=== PATIENT | female | born 1990 | race Caucasian/White ===

== ENCOUNTER 2018-06-23 12:50 | Emergency (ER) | payer OTHER ==
[~2018-06-23] VITALS: Ht 157.5 cm; Wt 70.0 kg
[2018-06-23 13:28] VITALS: BP 110/70
--- NOTE | 2018-06-23 13:55 | NUR ---
PT AMBULATED TO ER BED 11
--- NOTE | 2018-06-23 14:03 | NUR ---
PT. ARRIVED TO THE ED DUE TO C/O RT EAR PAIN SINCE FRIDAY. DENIES DIZZINESS, NVD OR INJURY. DENIES ANY DISCHARGE FROM EAR BUT C/O OF NASAL CONGESTION WELL. 02/11 SHARP PAIN TO RT EAR THAT IS NON RADIATING. ER MD MADE AWARE. SAFETY PRECAUTIONS IMPLEMENTED. WILL CONTINUE TO MONITOR.
[2018-06-23 14:40] VITALS: BP 118/75
--- NOTE | 2018-06-23 14:40 | NUR ---
Patient discharged with v/s stable. Written and verbal after care instructions given and explained. Patient alert, oriented and verbalized understanding of instructions. Ambulatory with steady gait. All questions addressed prior to discharge. ID band removed. Patient advised to follow up with PMD. Rx of PROMETHAZINE DM, AUGMENTIN AND FLONASE given. Patient educated on indication of medication including possible reaction and side effects. Opportunity to ask questions provided and answered.
== END 2018-06-23 14:40 | disposition home or self-care (01) ==
LOC: MED 12:50
DX: J06.9 Acute upper respiratory infection, unspecified (principal); H92.01 Otalgia, right ear; Z90.710 Acquired absence of both cervix and uterus; Z88.5 Allergy status to narcotic agent
CPT/HCPCS: 99283

== ENCOUNTER 2019-01-02 09:41 | Emergency (ER) | payer OTHER ==
[~2019-01-02] VITALS: Ht 157.5 cm; Wt 70.9 kg
--- NOTE | 2019-01-02 09:46 | NUR ---
PT TAKEN TO BED 6.
[2019-01-02 09:50] VITALS: BP 115/72
--- NOTE | 2019-01-02 09:50 | NUR ---
PT BIB SELF C/O LLQ PAIN X 1 WEEK. PT REPORTS SHARP NON RADIATING LLQ PAIN AT 8, TX WITH TYLENOL W/OUT RELIEF. LAST BM 01/01/19, ABD FLAT, TENDER TO TOUCH. + NAUSEA. - FEVER, DIARRHEA, OR DYSURIA. VSS. ER MD TO SEE PT. MEDHX:HYSTERECTOMY RX:TYLENOL
--- NOTE | 2019-01-02 10:06 | NUR ---
PT STATES SHE IS UNABLE TO PROVIDE URINE AT THIS TIME
--- NOTE | 2019-01-02 10:22 | NUR ---
Dr. Butcher evaluating patient at bedside.
[2019-01-02] MEDS ORDERED: NACL 0.9% 1,000 ML IV SCH (10:47)
[2019-01-02] MEDS ORDERED: KETOROLAC 30 MG/ML VIAL IVP ONE (10:50)
[2019-01-02] MEDS ORDERED: ONDANSETRON 4 MG/2 ML VIAL IVP ONE (10:50)
[2019-01-02 11:54] LABS: BASOPHILS % (AUTO) 0.2 % (0.0-2.0); EOSINOPHILS % (AUTO) 0.5 % (0.0-4.0); HEMATOCRIT 41.6 % (36-48); HEMOGLOBIN 14.1 g/dL (12.0-16.0); LYMPHOCYTES # (AUTO) 1.8 K/uL (2.5-16.5); LYMPHOCYTES % (AUTO) 28.3 % (20.5-51.1); MEAN CORPUSCULAR HEMOGLOBIN 30 pg (27-31); MEAN CORPUSCULAR HGB CONC 34 g/dL (33-37); MEAN CORPUSCULAR VOLUME 88.8 fL (80-94); MONOCYTES # (AUTO) 0.5 K/uL (0.8-1.0); MONOCYTES % (AUTO) 7.9 % (1.7-9.3); NEUTROPHILS % (AUTO) 63.1 % (42.2-75.2); PLATELET COUNT (AUTO) 248 K/uL (140-450); RED BLOOD CELL COUNT(AUTO) 4.68 MIL/uL (4.20-5.40); RED CELL DISTRIBUTION WIDTH 12.4 % (11.6-13.7); WHITE BLOOD COUNT (AUTO) 6.4 K/uL (4.8-10.8)
--- NOTE | 2019-01-02 11:57 | NUR ---
US tech at bedside.
[2019-01-02 12:17] LABS: ALBUMIN 4.2 g/dL (3.4-5.0); ANION GAP 12.6 (8-16); CARBON DIOXIDE 29.3 mmol/L (21-32); CREATININE 0.7 mg/dL (0.6-1.3); POTASSIUM 3.9 mmol/L (3.5-5.1); TOTAL BILIRUBIN 0.5 mg/dL (0.0-1.0)
[2019-01-02 12:23] LABS: BILIRUBIN,URINE NEGATIVE (NEGATIVE); BLOOD, URINE NEGATIVE (NEGATIVE); COLOR,URINE YELLOW (YELLOW); LEUKOCYTE ESTERASE ,URINE TRACE (NEGATIVE); NITRITE, URINE NEGATIVE (NEGATIVE); UGLUCOSE NEGATIVE (NEGATIVE)
[2019-01-02 12:32] LABS: APPEARANCE,URINE SLIGHTLY HAZY (CLEAR); RBC,URINE NONE SEEN /HPF (0-5); WBC,URINE 0-5 /HPF (0-5)
--- NOTE | 2019-01-02 12:38 | NUR ---
PT SITTING IN BED. PT DENIES NAUSEA AT THIS TIME, REPORTS SHARP PAIN AT 4/10 IN LLQ THAT INCREASES WITH PALPATION. PT STATES PAIN IS TOLERABLE AT THIS TIME.
--- NOTE | 2019-01-02 14:32 | NUR ---
Dr. Butcher evaluating patient at bedside.
[2019-01-02 15:11] VITALS: BP 96/58
== END 2019-01-02 15:11 | disposition home or self-care (01) ==
LOC: MED 09:41
DX: N39.0 Urinary tract infection, site not specified (principal); E07.9 Disorder of thyroid, unspecified; Z90.710 Acquired absence of both cervix and uterus; Z88.5 Allergy status to narcotic agent
CPT/HCPCS: 36415; 76856; 80053; 81001; 83690; 85025; 87086; 96374; 96375; 99284; J1885; J2405; J7030; Q0092

== ENCOUNTER 2019-07-18 08:11 | Emergency (ER) | payer OTHER ==
[~2019-07-18] VITALS: Ht 157.5 cm; Wt 73.5 kg
[2019-07-18 08:17] VITALS: BP 119/87
--- NOTE | 2019-07-18 08:22 | NUR ---
C/O STABBING R EAR PAIN RADIATING DOWN R SIDE OF NECK 12/12 X3 WEEKS. PT STATES SHE WAS GIVEN PCN 2 WEEKS AGO AND FINISHED IT WITH NO IMPROVEMENT. PT WAS SEEN WED AT PCP AND GIVEN ANOTHER ABX - NAME UNK - FOR 5 DAYS BUT IS STILL HAVING NO PAIN RELIEF. DENIES INJURY TO EAR. BED IN LOW POSITION, SIDE RAIL UP X1.
--- NOTE | 2019-07-18 08:28 | NUR ---
DR. GARAY AT BEDSIDE
[2019-07-18] MEDS ORDERED: KETOROLAC 60 MG/2 ML VIAL IM ONE (08:45)
[2019-07-18 09:41] VITALS: BP 119/87
--- NOTE | 2019-07-18 09:43 | NUR ---
Patient discharged with v/s stable. Written and verbal after care instructions given and explained. Patient alert, oriented and verbalized understanding of instructions. Ambulatory with steady gait. All questions addressed prior to discharge. ID band removed. Patient advised to follow up with PMD. Rx of debrox, motrin given. Patient educated on indication of medication including possible reaction and side effects. Opportunity to ask questions provided and answered.
== END 2019-07-18 09:43 | disposition home or self-care (01) ==
LOC: MED 08:11
DX: H61.21 Impacted cerumen, right ear (principal); E07.9 Disorder of thyroid, unspecified; Z88.5 Allergy status to narcotic agent; Z98.890 Other specified postprocedural states
CPT/HCPCS: 69209; 96372; 99283; J1885

== ENCOUNTER 2019-08-09 06:44 | Emergency (ER) | payer OTHER ==
[~2019-08-09] VITALS: Ht 157.5 cm; Wt 72.6 kg
[2019-08-09 06:45] VITALS: BP 129/89
--- NOTE | 2019-08-09 06:50 | NUR ---
PT TAKEN TO BED 5
[2019-08-09] MEDS ORDERED: KETOROLAC 30 MG/ML VIAL IM ONE (07:35)
--- NOTE | 2019-08-09 07:36 | NUR ---
Dr. Parker is evaluating the patient at bedside.
--- NOTE | 2019-08-09 07:44 | NUR ---
RECEIVED A 29/F FROM TRIAGE FOR C/O BILATERAL EAR ACHING AND HEADACHE. DENIES INJURY/TRAUMA. IN BED FOR MSE.
--- NOTE | 2019-08-09 08:09 | NUR ---
Dr. Parker is re-evaluating the patient at bedside.
--- NOTE | 2019-08-09 09:04 | NUR ---
CT COMPLETE. PENDING RESULTS. PT REPORTS PAIN IS AT A TOLERABLE LEVEL AT THIS TIME. ALL NEEDS ADRESSED.
[2019-08-09 09:18] VITALS: BP 129/89
--- NOTE | 2019-08-09 09:19 | NUR ---
Patient discharged with v/s stable. Written and verbal after care instructions given and explained. Patient alert, oriented and verbalized understanding of instructions. Ambulatory with steady gait. All questions addressed prior to discharge. ID band removed. Patient advised to follow up with PMD. Rx of AMOXICILLIN, TRAMADOL, DEBROX EAR GTT, MIRALAX given. Patient educated on indication of medication including possible reaction and side effects. Opportunity to ask questions provided and answered.
== END 2019-08-09 09:19 | disposition home or self-care (01) ==
LOC: MED 06:44
DX: H66.91 Otitis media, unspecified, right ear (principal); N39.0 Urinary tract infection, site not specified; Z90.710 Acquired absence of both cervix and uterus; Z88.5 Allergy status to narcotic agent
CPT/HCPCS: 74176; 81002; 81025; 96372; 99284; J1885

== ENCOUNTER 2019-10-17 13:07 | Emergency (ER) | payer OTHER ==
[~2019-10-17] VITALS: Ht 157.5 cm; Wt 68.0 kg
[2019-10-17 13:10] VITALS: BP 111/77
--- NOTE | 2019-10-17 13:20 | NUR ---
PT AMBULATES TO BED 5 WITH STEADY GAIT.
--- NOTE | 2019-10-17 13:25 | NUR ---
C/O R EAR PAIN X 1 MONTH.PT AOX4 ,AFIBRILE ,DENIES N/V, DENIED COUGH AND COLD. NO HXS OF MEDS INTAKE. RT EAR TM INTACT, WITH OILY RED NON SMELLING DISCHARGE , NON TENDER PRE AURICULAR AREA. MED HX: DENIES
--- NOTE | 2019-10-17 13:28 | NUR ---
DR OLSON AT BEDSIDE EVALUATING PT.
[2019-10-17 13:59] VITALS: BP 111/77
--- NOTE | 2019-10-17 14:00 | NUR ---
Patient discharged with v/s stable. Written and verbal after care instructions given and explained regarding otitis externa. Patient alert, oriented and verbalized understanding of instructions. Ambulatory with steady gait. All questions addressed prior to discharge. ID band removed. Patient advised to follow up with PMD. Rx of augmentin , motrin and cipro ear drops given. Patient educated on indication of medication including possible reaction and side effects. Opportunity to ask questions provided and answered.
== END 2019-10-17 14:00 | disposition home or self-care (01) ==
LOC: MED 13:07
DX: H60.91 Unspecified otitis externa, right ear (principal); E07.9 Disorder of thyroid, unspecified; Z88.5 Allergy status to narcotic agent; Z98.890 Other specified postprocedural states
CPT/HCPCS: 99283

== ENCOUNTER 2021-05-05 14:25 | Emergency (ER) | payer OTHER ==
--- NOTE | 2021-05-05 17:00 | NUR ---
PT CALLED IN LOBBY NO ANSWER. AWARE.
--- NOTE | 2021-05-05 17:10 | NUR ---
PT CALLED SECOND TIME, NO ANSWER. MADE AWARE.
--- NOTE | 2021-05-05 17:20 | NUR ---
PT CALLED THIRD TIME TO PHONE LEFT . MADE AWARE.
== END 2021-05-05 17:00 | disposition left against medical advice (07) ==
LOC: MED 14:25
DX: Z53.21 Procedure and treatment not carried out due to patient leaving prior to being seen by health care provider (principal)

== ENCOUNTER 2021-10-07 11:46 | Emergency (ER) | payer OTHER ==
[~2021-10-07] VITALS: Ht 157.5 cm; Wt 75.7 kg
[2021-10-07 11:48] VITALS: BP 132/74
--- NOTE | 2021-10-07 11:55 | NUR ---
Patient ambulated with steady gait to bed 4.
--- NOTE | 2021-10-07 12:06 | NUR ---
31 Y/O FEMALE C/O LLQ PAIN, URINARY FREQUENCY AND FATIGUE SINCE FRIDAY. REPORTS HX OF OVARIAN CYSTS AND STATES PAIN FEELS SIMILAR. DENIES DYSURIA, HEMATURIA, N/V/D. PT DENIES CHEST PAIN, SOB. PMH: HX OF OVARIAN CYSTS ALLERGIES: MORPHINE
--- NOTE | 2021-10-07 12:53 | NUR ---
LAB AT PT BEDSIDE
[2021-10-07 13:05] LABS: BASOPHILS % (AUTO) 0.6 % (0.0-2.0); EOSINOPHILS # (AUTO) 0.1 K/uL (0-0.4); EOSINOPHILS % (AUTO) 1.1 % (0.0-4.0); HEMOGLOBIN 12.2 g/dL (12.0-16.0); LYMPHOCYTES # (AUTO) 2.4 K/uL (2.5-16.5); LYMPHOCYTES % (AUTO) 35.6 % (20.5-51.1); MEAN CORPUSCULAR HEMOGLOBIN 30 pg (27-31); MEAN CORPUSCULAR HGB CONC 34 g/dL (33-37); MEAN CORPUSCULAR VOLUME 88.5 fL (80-94); MONOCYTES # (AUTO) 0.8 K/uL (0.8-1.0); MONOCYTES % (AUTO) 11.9 % (1.7-9.3); NEUTROPHILS # (AUTO) 3.5 K/uL (1.8-7.7); NEUTROPHILS % (AUTO) 50.8 % (42.2-75.2); PLATELET COUNT (AUTO) 224 K/uL (140-450); RED BLOOD CELL COUNT(AUTO) 4.07 MIL/uL (4.20-5.40); RED CELL DISTRIBUTION WIDTH 12.7 % (11.6-13.7); WHITE BLOOD COUNT (AUTO) 6.9 K/uL (4.8-10.8)
[2021-10-07] MEDS ORDERED: KETOROLAC 60 MG/2 ML VIAL IM ONE (13:10)
[2021-10-07 13:32] LABS: ALBUMIN 3.8 g/dL (3.4-5.0); ANION GAP 8.8 (8-16); CARBON DIOXIDE 29.4 mmol/L (21-32); CREATININE 0.8 mg/dL (0.6-1.3); POTASSIUM 4.2 mmol/L (3.5-5.1); TOTAL BILIRUBIN 0.3 mg/dL (0.0-1.0)
[2021-10-07] MEDS ORDERED: ACET-8386 PO (13:42)
[2021-10-07] MEDS ORDERED: IBUP-2213 PO (13:42)
[2021-10-07 13:53] VITALS: BP 129/74
--- NOTE | 2021-10-07 14:01 | NUR ---
Patient discharged with v/s stable. Written and verbal after care instructions given and explained. Patient alert, oriented and verbalized understanding of instructions. Ambulatory with steady gait. All questions addressed prior to discharge. ID band removed. Patient advised to follow up with PMD. Rx of HYDROCODONE/IBUPROFEN given. Patient educated on indication of medication including possible reaction and side effects. Opportunity to ask questions provided and answered.
== END 2021-10-07 14:01 | disposition home or self-care (01) ==
LOC: MED 11:46
DX: R10.32 Left lower quadrant pain (principal); R03.0 Elevated blood-pressure reading, without diagnosis of hypertension; Z88.5 Allergy status to narcotic agent; Z90.710 Acquired absence of both cervix and uterus; Z98.890 Other specified postprocedural states
CPT/HCPCS: 36415; 80053; 81002; 81025; 85025; 96372; 99283; J1885

== ENCOUNTER 2021-10-24 23:27 | Emergency (ER) | payer OTHER ==
[~2021-10-24] VITALS: Ht 157.5 cm; Wt 70.8 kg
[~2021-10-24 23:27] MED LIST: ACET-8386 PO; IBUP-2213 PO
[2021-10-24 23:47] VITALS: BP 110/81
--- NOTE | 2021-10-24 23:54 | NUR ---
Patient ambulated to bed 8 with her family.
[2021-10-25] MEDS ORDERED: ONDANSETRON 4 MG/2 ML VIAL IVP ONE (00:55)
[2021-10-25] MEDS ORDERED: NACL 0.9% 1,000 ML IV ONE (00:55)
[2021-10-25 01:18] LABS: HEMATOCRIT 36.3 % (36-48); HEMOGLOBIN 12.2 g/dL (12.0-16.0); MEAN CORPUSCULAR HEMOGLOBIN 30 pg (27-31); MEAN CORPUSCULAR HGB CONC 34 g/dL (33-37); MEAN CORPUSCULAR VOLUME 88.8 fL (80-94); RED BLOOD CELL COUNT(AUTO) 4.09 MIL/uL (4.20-5.40); RED CELL DISTRIBUTION WIDTH 12.7 % (11.6-13.7); WHITE BLOOD COUNT (AUTO) 6.7 K/uL (4.8-10.8)
[2021-10-25 01:19] LABS: BASOPHILS % (AUTO) 0.5 % (0.0-2.0); EOSINOPHILS % (AUTO) 1.1 % (0.0-4.0); LYMPHOCYTES # (AUTO) 2.9 K/uL (2.5-16.5); LYMPHOCYTES % (AUTO) 43.2 % (20.5-51.1); MONOCYTES # (AUTO) 0.8 K/uL (0.8-1.0); MONOCYTES % (AUTO) 11.4 % (1.7-9.3); NEUTROPHILS # (AUTO) 2.9 K/uL (1.8-7.7); NEUTROPHILS % (AUTO) 43.8 % (42.2-75.2); PLATELET COUNT (AUTO) 251 K/uL (140-450)
[2021-10-25 01:20] LABS: EOSINOPHILS # (AUTO) 0.1 K/uL (0-0.4)
[2021-10-25 01:32] LABS: ALBUMIN 3.9 g/dL (3.4-5.0); ANION GAP 8.5 (8-16); CARBON DIOXIDE 31.2 mmol/L (21-32); CREATININE 0.8 mg/dL (0.6-1.3); POTASSIUM 3.7 mmol/L (3.5-5.1); TOTAL BILIRUBIN 0.3 mg/dL (0.0-1.0)
--- NOTE | 2021-10-25 01:45 | NUR ---
PT STATES N/V/D X 3 DAYS .;PT STATES NO APPETITE SKIN IS PINK/WARM/DRY; AAOX4 WITH EVEN AND STEADY GAIT; LUNGS CLEAR BL; HR EVEN AND REGULAR; PT DENIES ANY FEVER, CP, SOB, OR COUGH AT THIS TIME; PATIENT STATES PAIN OF 5/10 AT THIS TIME; VSS; PATIENT POSITIONED FOR COMFORT; PT STATES SHE HAD A HYSTERECTOMY AFTER 3RD CHILD. DENIES PMH NKA RX: NONE
--- NOTE | 2021-10-25 02:00 | NUR ---
PT STATES SHE IS STILL IN PAIN BUT NAUSEA IS GONE
[2021-10-25 02:50] LABS: APPEARANCE,URINE CLEAR (CLEAR); BILIRUBIN,URINE NEGATIVE (NEGATIVE); BLOOD, URINE NEGATIVE (NEGATIVE); COLOR,URINE YELLOW (YELLOW); LEUKOCYTE ESTERASE ,URINE NEGATIVE (NEGATIVE); NITRITE, URINE NEGATIVE (NEGATIVE); PH,URINE 6.5 (5.0-9.0); UGLUCOSE NEGATIVE (NEGATIVE)
[2021-10-25] MEDS ORDERED: KETOROLAC 30 MG/ML VIAL IVP ONE (02:50)
[2021-10-25] MEDS ORDERED: BEN10 PO (03:00)
[2021-10-25] MEDS ORDERED: ONDA-188 PO (03:00)
[2021-10-25 03:41] VITALS: BP 120/70
--- NOTE | 2021-10-25 03:41 | NUR ---
Patient discharged with v/s stable. Written and verbal after care instructions given and explained. Patient alert, oriented and verbalized understanding of instructions. Ambulatory with steady gait. All questions addressed prior to discharge. ID band removed. Patient advised to follow up with PMD. Rx of LISSA AND MARLEY given. Opportunity to ask questions provided and answered.
--- NOTE | 2021-10-25 03:42 | NUR ---
Chart checked and completed.
== END 2021-10-25 03:41 | disposition home or self-care (01) ==
LOC: MED 23:27
DX: R11.10 Vomiting, unspecified (principal); R19.7 Diarrhea, unspecified; Z90.710 Acquired absence of both cervix and uterus; Z88.5 Allergy status to narcotic agent
CPT/HCPCS: 36415; 80053; 81003; 81025; 83690; 85025; 96361; 96374; 96375; 99284; J1885; J2405; J7030

== ENCOUNTER 2022-02-10 12:58 | Emergency (ER) | payer MEDICAID, OTHER ==
[~2022-02-10] VITALS: Ht 160 cm; Wt 75.3 kg
[~2022-02-10 12:58] MED LIST changes: +BEN10 PO; +ONDA-188 PO
[2022-02-10 13:02] VITALS: BP 125/85
[2022-02-10] MEDS ORDERED: ACETAMINOPHEN 325 MG TAB PO ONE (14:45)
[2022-02-10] MEDS ORDERED: ONDANSETRON 4 MG ODT PO ONE (14:45)
[2022-02-10 15:03] LABS: BASOPHILS # (AUTO) 0.1 K/uL (0.00-0.22); BASOPHILS % (AUTO) 0.6 % (0.0-2.0); EOSINOPHILS # (AUTO) 0.1 K/uL (0-0.4); EOSINOPHILS % (AUTO) 0.6 % (0.0-4.0); HEMATOCRIT 36.9 % (36-48); HEMOGLOBIN 12.6 g/dL (12.0-16.0); LYMPHOCYTES # (AUTO) 2.9 K/uL (2.5-16.5); LYMPHOCYTES % (AUTO) 32.7 % (20.5-51.1); MEAN CORPUSCULAR HEMOGLOBIN 30 pg (27-31); MEAN CORPUSCULAR HGB CONC 34 g/dL (33-37); MEAN CORPUSCULAR VOLUME 87.7 fL (80-94); MONOCYTES # (AUTO) 0.7 K/uL (0.8-1.0); MONOCYTES % (AUTO) 8.1 % (1.7-9.3); NEUTROPHILS # (AUTO) 5.2 K/uL (1.8-7.7); PLATELET COUNT (AUTO) 271 K/uL (140-450); RED BLOOD CELL COUNT(AUTO) 4.21 MIL/uL (4.20-5.40); RED CELL DISTRIBUTION WIDTH 12.5 % (11.6-13.7); WHITE BLOOD COUNT (AUTO) 8.9 K/uL (4.8-10.8)
[2022-02-10 16:01] LABS: ALBUMIN 4.3 g/dL (3.4-5.0); ANION GAP 12.9 (8-16); ASPARTATE AMINOTRANSFERASE 13 U/L (15-37); CARBON DIOXIDE 27.7 mmol/L (21-32); CHLORIDE 102 mmol/L (98-107); CREATININE 0.8 mg/dL (0.6-1.3); GFR ARICAN-AMERICAN 108 mL/min (>90); GLUCOSE 89 mg/dL (74-106); POTASSIUM 3.6 mmol/L (3.5-5.1); SODIUM SERUM 139 mmol/L (136-145); TOTAL BILIRUBIN 0.3 mg/dL (0.0-1.0); UREA NITROGEN, BLOOD 20 mg/dL (7-18)
[2022-02-10] MEDS ORDERED: KETOROLAC 15 MG/ML VIAL IM ONE (16:30)
[2022-02-10 18:16] VITALS: BP 114/68
== END 2022-02-10 16:50 | disposition home or self-care (01) ==
LOC: MED 12:58
DX: R07.89 Other chest pain (principal); R06.02 Shortness of breath; M79.10 Myalgia, unspecified site; Z88.5 Allergy status to narcotic agent; Z79.899 Other long term (current) drug therapy; Z98.890 Other specified postprocedural states; Z90.710 Acquired absence of both cervix and uterus
CPT/HCPCS: 36415; 71045; 80053; 81025; 84484; 85025; 93005; 96372; 99285; J1885; Q0092; Q0162

== ENCOUNTER 2023-01-06 16:39 | Emergency (ER) | payer MEDICAID, OTHER ==
[~2023-01-06] VITALS: Ht 157.5 cm; Wt 77.1 kg
[~2023-01-06 16:39] MED LIST changes: -ACET-8386 PO; +ACET-8905 PO
[2023-01-06 16:55] VITALS: BP 130/72; PULSE 93; RESP 20; TEMP 97.9; O2SAT 99
[2023-01-06] MEDS ORDERED: KETOROLAC 30 MG/ML VIAL IM ONE (18:15)
[2023-01-06 18:41] LABS: BASOPHILS % (AUTO) 0.5 % (0.0-2.0); EOSINOPHILS # (AUTO) 0.1 K/uL (0-0.4); EOSINOPHILS % (AUTO) 0.9 % (0.0-4.0); HEMATOCRIT 39.1 % (36-48); HEMOGLOBIN 13.1 g/dL (12.0-16.0); LYMPHOCYTES # (AUTO) 2.9 K/uL (2.5-16.5); LYMPHOCYTES % (AUTO) 30.9 % (20.5-51.1); MEAN CORPUSCULAR HEMOGLOBIN 30 pg (27-31); MEAN CORPUSCULAR HGB CONC 34 g/dL (33-37); MEAN CORPUSCULAR VOLUME 89.5 fL (80-94); MONOCYTES % (AUTO) 10.3 % (1.7-9.3); NEUTROPHILS # (AUTO) 5.4 K/uL (1.8-7.7); NEUTROPHILS % (AUTO) 57.4 % (42.2-75.2); PLATELET COUNT (AUTO) 268 K/uL (140-450); RED BLOOD CELL COUNT(AUTO) 4.38 MIL/uL (4.20-5.40); RED CELL DISTRIBUTION WIDTH 12.5 % (11.6-13.7); WHITE BLOOD COUNT (AUTO) 9.4 K/uL (4.8-10.8)
[2023-01-06 18:43] VITALS: O2SAT 99
[2023-01-06 18:49] LABS: APPEARANCE,URINE CLEAR (CLEAR); BILIRUBIN,URINE NEGATIVE (NEGATIVE); BLOOD, URINE NEGATIVE (NEGATIVE); COLOR,URINE YELLOW (YELLOW); LEUKOCYTE ESTERASE ,URINE NEGATIVE (NEGATIVE); NITRITE, URINE NEGATIVE (NEGATIVE); PH,URINE 8.5 (5.0-9.0); PROTEIN,URINE NEGATIVE (NEGATIVE); UGLUCOSE NEGATIVE (NEGATIVE)
[2023-01-06 18:58] LABS: ALBUMIN 4.1 g/dL (3.4-5.0); ANION GAP 11.4 (8-16); CALCIUM 9.1 mg/dL (8.5-10.1); CARBON DIOXIDE 30.4 mmol/L (21-32); CREATININE 0.8 mg/dL (0.6-1.3); POTASSIUM 3.8 mmol/L (3.5-5.1); TOTAL BILIRUBIN 0.3 mg/dL (0.0-1.0); TOTAL PROTEIN, SERUM 8.2 g/dL (6.4-8.2)
[2023-01-06] MEDS ORDERED: IBUP-2213 PO (19:55)
[2023-01-06] MEDS ORDERED: TAMS0.4C96 PO (19:55)
[2023-01-06] MEDS ORDERED: ACET-8905 PO (19:55)
== END 2023-01-06 20:03 | disposition home or self-care (01) ==
LOC: MED 16:39
DX: N20.0 Calculus of kidney (principal); M79.662 Pain in left lower leg; Z88.5 Allergy status to narcotic agent; Z79.899 Other long term (current) drug therapy
CPT/HCPCS: 36415; 72110; 74176; 80053; 81003; 81025; 85025; 96372; 99285; J1885

== ENCOUNTER 2023-02-13 06:15 | Emergency (ER) | payer OTHER ==
[~2023-02-13] VITALS: Ht 157.5 cm; Wt 77.1 kg
[~2023-02-13 06:15] MED LIST changes: +TAMS0.4C96 PO
[2023-02-13 06:24] VITALS: BP 111/72; PULSE 83; RESP 20; TEMP 98; O2SAT 98
[2023-02-13] MEDS ORDERED: IBUPROFEN 600 MG TAB PO ONE (07:10)
[2023-02-13 07:16] LABS: BASOPHILS % (AUTO) 0.6 % (0.0-2.0); EOSINOPHILS # (AUTO) 0.1 K/uL (0-0.4); EOSINOPHILS % (AUTO) 1.2 % (0.0-4.0); HEMATOCRIT 35.5 % (36-48); HEMOGLOBIN 12.3 g/dL (12.0-16.0); LYMPHOCYTES # (AUTO) 2.2 K/uL (2.5-16.5); MEAN CORPUSCULAR HEMOGLOBIN 30 pg (27-31); MEAN CORPUSCULAR HGB CONC 35 g/dL (33-37); MEAN CORPUSCULAR VOLUME 87.3 fL (80-94); MONOCYTES # (AUTO) 0.6 K/uL (0.8-1.0); MONOCYTES % (AUTO) 10.5 % (1.7-9.3); NEUTROPHILS % (AUTO) 50.7 % (42.2-75.2); PLATELET COUNT (AUTO) 256 K/uL (140-450); RED BLOOD CELL COUNT(AUTO) 4.06 MIL/uL (4.20-5.40); RED CELL DISTRIBUTION WIDTH 12.5 % (11.6-13.7)
[2023-02-13 07:43] LABS: ALANINE AMINOTRANSFERASE 13 U/L (12-78); ALBUMIN 3.6 g/dL (3.4-5.0); ALKALINE PHOSPHATASE 92 U/L (50-136); ANION GAP 12.3 (8-16); ASPARTATE AMINOTRANSFERASE 12 U/L (15-37); CALCIUM 8.7 mg/dL (8.5-10.1); CARBON DIOXIDE 27.2 mmol/L (21-32); CHLORIDE 104 mmol/L (98-107); CREATININE 0.8 mg/dL (0.6-1.3); GFR ARICAN-AMERICAN 108 mL/min (>90); GFR NON ARICAN-AMERICAN 89 mL/min (>90); GLUCOSE 100 mg/dL (74-106); POTASSIUM 3.5 mmol/L (3.5-5.1); SODIUM SERUM 140 mmol/L (136-145); TOTAL BILIRUBIN 0.2 mg/dL (0.0-1.0); TOTAL PROTEIN, SERUM 7.4 g/dL (6.4-8.2); UREA NITROGEN, BLOOD 14 mg/dL (7-18)
[2023-02-13] MEDS ORDERED: LORazepam 1 MG TAB ONE (07:45)
[2023-02-13] MEDS ORDERED: LORazepam 1 MG TAB PO ONE (07:45)
[2023-02-13] MEDS ORDERED: IBUP-2213 PO (08:23)
[2023-02-13] MEDS ORDERED: ATA10 PO (08:23)
[2023-02-13 08:40] VITALS: BP 107/76; PULSE 81; RESP 17; TEMP 98; O2SAT 98
== END 2023-02-13 08:46 | disposition home or self-care (01) ==
LOC: MED 06:15
DX: R07.89 Other chest pain (principal); F41.9 Anxiety disorder, unspecified; Z79.899 Other long term (current) drug therapy; Z79.1 Long term (current) use of non-steroidal anti-inflammatories (NSAID); Z88.5 Allergy status to narcotic agent
CPT/HCPCS: 36415; 71045; 80053; 81025; 84484; 85025; 85379; 93005; 99285

== ENCOUNTER 2023-04-22 17:23 | Emergency (ER) | payer OTHER ==
[~2023-04-22 17:23] MED LIST changes: +ATA10 PO
[2023-04-23] MEDS ORDERED: NAPR-1704 PO (08:11)
== END 2023-04-22 18:18 | disposition left against medical advice (07) ==
LOC: MED 17:23
DX: M79.603 Pain in arm, unspecified (principal); Z53.21 Procedure and treatment not carried out due to patient leaving prior to being seen by health care provider

== ENCOUNTER 2023-04-23 07:20 | Emergency (ER) | payer OTHER ==
[~2023-04-23] VITALS: Ht 157.5 cm; Wt 83.5 kg
[2023-04-23 07:47] VITALS: BP 109/71; PULSE 70; RESP 14; TEMP 98.1; O2SAT 100
[2023-04-23] MEDS ORDERED: NAPR-1704 PO (08:11)
== END 2023-04-23 08:38 | disposition home or self-care (01) ==
LOC: MED 07:20
DX: M77.8 Other enthesopathies, not elsewhere classified (principal); Z90.710 Acquired absence of both cervix and uterus; Z79.899 Other long term (current) drug therapy; Z79.1 Long term (current) use of non-steroidal anti-inflammatories (NSAID); Z88.5 Allergy status to narcotic agent
CPT/HCPCS: 99282

== ENCOUNTER 2023-12-10 11:25 | Emergency (ER) | payer OTHER ==
[~2023-12-10] VITALS: Ht 157.5 cm; Wt 85.0 kg
[~2023-12-10 11:25] MED LIST changes: +NAPR-1704 PO
[2023-12-10 11:35] VITALS: BP 113/66; PULSE 93; RESP 17; TEMP 97.8; O2SAT 99
[2023-12-10 11:45] VITALS: TEMP 97.8
[2023-12-10] MEDS: KETOROLAC 60 MG/2 ML VIAL IM ONE (12:39)
[2023-12-10 12:55] LABS: BASOPHILS % (AUTO) 0.5 % (0.0-2.0); EOSINOPHILS % (AUTO) 0.4 % (0.0-4.0); HEMATOCRIT 38.4 % (36-48); HEMOGLOBIN 12.8 g/dL (12.0-16.0); LYMPHOCYTES # (AUTO) 2.1 K/uL (2.5-16.5); LYMPHOCYTES % (AUTO) 26.4 % (20.5-51.1); MEAN CORPUSCULAR HEMOGLOBIN 30 pg (27-31); MEAN CORPUSCULAR HGB CONC 33 g/dL (33-37); MONOCYTES # (AUTO) 0.7 K/uL (0.8-1.0); MONOCYTES % (AUTO) 8.5 % (1.7-9.3); NEUTROPHILS % (AUTO) 64.2 % (42.2-75.2); PLATELET COUNT (AUTO) 291 K/uL (140-450); RED BLOOD CELL COUNT(AUTO) 4.31 MIL/uL (4.20-5.40); RED CELL DISTRIBUTION WIDTH 13.1 % (11.6-13.7); WHITE BLOOD COUNT (AUTO) 7.9 K/uL (4.8-10.8)
[2023-12-10 13:29] LABS: APPEARANCE,URINE CLEAR (CLEAR); BILIRUBIN,URINE NEGATIVE (NEGATIVE); BLOOD, URINE NEGATIVE (NEGATIVE); COLOR,URINE YELLOW (YELLOW); LEUKOCYTE ESTERASE ,URINE NEGATIVE (NEGATIVE); NITRITE, URINE NEGATIVE (NEGATIVE); PH,URINE 6.5 (5.0-9.0); PROTEIN,URINE NEGATIVE (NEGATIVE); UGLUCOSE NEGATIVE (NEGATIVE); UROBILINOGEN,URINE 0.2 EU/dL (0.2 - 1)
[2023-12-10 13:50] LABS: ANION GAP 10.9 (8-16); CALCIUM 9.2 mg/dL (8.5-10.1); CARBON DIOXIDE 30.2 mmol/L (21-32); CREATININE 0.8 mg/dL (0.6-1.3); POTASSIUM 4.1 mmol/L (3.5-5.1)
[2023-12-10] MEDS ORDERED: TRAM-748 PO (13:50)
[2023-12-10 13:54] LABS: ALBUMIN 3.7 g/dL (3.4-5.0); BILIRUBIN,DIRECT 0.1 mg/dL (0.0-0.3); TOTAL BILIRUBIN 0.4 mg/dL (0.0-1.0)
[2023-12-10 14:01] VITALS: BP 110/74; PULSE 77; RESP 18; O2SAT 97
== END 2023-12-10 14:01 | disposition home or self-care (01) ==
LOC: MED 11:25
DX: R10.31 Right lower quadrant pain (principal); R19.7 Diarrhea, unspecified; Z79.1 Long term (current) use of non-steroidal anti-inflammatories (NSAID); Z79.899 Other long term (current) drug therapy; Z88.5 Allergy status to narcotic agent
CPT/HCPCS: 36415; 74176; 80048; 80076; 81003; 81025; 83690; 85025; 96372; 99285; J1885